=== PATIENT | female | born 1990 | race Caucasian/White ===

== ENCOUNTER 2018-01-20 08:53 | Outpatient (CLI) | payer BC | END 2018-01-20 08:54 | disposition home or self-care (01) | LOC: BICMAMMO 08:53 | PROVIDERS: ATTEND Family Medicine | DX: M85.80 Other specified disorders of bone density and structure, unspecified site (principal); E55.9 Vitamin D deficiency, unspecified | CPT/HCPCS: 77080 ==

== ENCOUNTER 2018-12-31 14:32 | Inpatient (IN) | payer BC ==
[2018-12-31] MEDS: Lactated Ringer's 1,000 ML IV SCH (21:25)
[2018-12-31] MEDS ORDERED: NS w/ Oxytocin 10 units 500 ML IV SCH (21:27)
[2018-12-31] MEDS ORDERED: HYDROcodone/Acetaminophen 5/325 mg Tablet PO PRN ×2 (21:27)
[2018-12-31] MEDS ORDERED: hydrALAZINE 20 MG/ML VIAL SLOW IVP PRN (21:27)
[2018-12-31] MEDS ORDERED: Lidocaine 1% (PF) 30 ML VIAL SC PRN (21:27)
[2018-12-31] MEDS ORDERED: Promethazine HCl 25 MG/ML VIAL IM PRN (21:27)
[2018-12-31] MEDS ORDERED: Ibuprofen 800 MG TAB PO PRN (21:27)
[2018-12-31] MEDS ORDERED: Acetaminophen 500 MG TAB PO PRN (21:27)
[2018-12-31] MEDS ORDERED: NS / Oxytocin 40 units/1000ml 1,000 ML IV PRN (21:27)
[2018-12-31] MEDS ORDERED: Ondansetron PF 4 MG/2 ML Vial IVP PRN (21:27)
[2018-12-31] MEDS ORDERED: Butorphanol Tartrate 1 MG/ML VIAL SLOW IVP PRN (21:27)
[2018-12-31 21:37] LABS: Hemoglobin 11.4 g/dL (12.0-16.0); Mean Corpuscular HGB CONC 32.5 g/dL (32.0-36.0); Mean Corpuscular Hemoglobin 27.9 pg (27.0-31.0); Mean Corpuscular Volume 85.7 fL (78.0-98.0); Mean Platelet Volume 8.7 fL (7.4-10.4); Platelet Count 321 thou/uL (130-400); RBC Distribution Width 13.7 % (11.5-14.5); Red Blood Cell (RBC) Count 4.09 mill/uL (4.20-5.40); White Blood Cell (WBC) Count 12.8 thou/uL (4.8-10.8)
[2018-12-31 21:39] VITALS: BMI 35.5
[2018-12-31] MEDS: Misoprostol 100 MCG TAB VAG SCH (21:45)
[2018-12-31 22:17] LABS: Syphilis Antibody Nonreactive (Nonreactive); Syphilis Antibody Index 0.07 S/CO (<1.00 Non-Reactive)
[2018-12-31 22:27] LABS: HBSAg Index 0.21 S/CO (0-0.99); Hep B Surf Ag Non-Reactive S/CO (NonReactive)
[2019-01-01] MEDS: Misoprostol 100 MCG TAB VAG SCH ×5 (01:10→21:55)
[2019-01-01] MEDS: Lactated Ringer's 1,000 ML IV SCH ×3 (08:12→12:13)
[2019-01-01] MEDS ORDERED: Fentanyl 4 mcg/Bup 0.1% Cadd 100 ML ONE (09:23)
[2019-01-01] MEDS ORDERED: Naloxone HCl 0.4 mg/ml Vial IVP PRN ×2 (09:58)
[2019-01-01] MEDS ORDERED: Promethazine HCl 25 MG/ML VIAL IM PRN (09:58)
[2019-01-01] MEDS ORDERED: diphenhydrAMINE 50 MG/ML VIAL IVP PRN (09:58)
[2019-01-01] MEDS ORDERED: Ondansetron PF 4 MG/2 ML Vial IVP PRN ×2 (09:58→15:32)
[2019-01-01] MEDS ORDERED: Acetaminophen 325 MG TAB PO PRN (09:58)
[2019-01-01] MEDS ORDERED: Lactated Ringer's 500 ML IV PRN (09:58)
[2019-01-01] MEDS ORDERED: ePHEDrine/0.9% NaCl/PF SYRINGE 50 mg/10 ml SLOW IVP PRN (09:58)
[2019-01-01] MEDS ORDERED: Fentanyl 4 mcg/Bupivacaine 0.1% Cassette 100 ML EPIDURAL SCH (10:00)
[2019-01-01] MEDS ORDERED: Communication Order-Pharmacy FS SCH (10:00)
--- NOTE | 2019-01-01 14:42 | PDOC.OPDEL ---
OB Operative/Delivery Note Delivery Dr/Surgeon: Hansel Pre-Delivery Diagnosis: elective induction Procedure/Post Delivery Dx: spontaneous vaginal delivery Weeks gestation: 40 Anesthesia: local - Findings A Sex: male - 1 min: 8 - 5 min: 9 - Additional Findings/Plan Placenta delivered: spontaneous Repaired Obstetrical Laceration: 2nd degree Estimated blood loss: 225ml Post delivery plan: routine recovery
[2019-01-01] MEDS ORDERED: HYDROcodone/Acetaminophen 5/325 mg Tablet PO PRN ×2 (15:32)
[2019-01-01] MEDS ORDERED: Adacel (T-DAP) 0.5 ML SYRINGE IM ONE (15:32)
[2019-01-01] MEDS ORDERED: hydrALAZINE 20 MG/ML VIAL SLOW IVP PRN (15:32)
[2019-01-01] MEDS ORDERED: diphenhydrAMINE 25 MG CAP PO PRN (15:32)
[2019-01-01] MEDS ORDERED: Benzocaine-Menthol 82.5 ML CAN TOP PRN (15:32)
[2019-01-01] MEDS ORDERED: Milk Of Magnesia 30 ML UDCUP PO PRN (15:32)
[2019-01-01] MEDS ORDERED: NS / Oxytocin 40 units/1000ml 1,000 ML IV SCH (15:32)
[2019-01-01] MEDS ORDERED: Bisacodyl 10 MG SUPP PR PRN (15:32)
[2019-01-01] MEDS: Ibuprofen 800 MG TAB PO SCH (21:15)
[2019-01-01] MEDS: Docusate Calcium (SURFAK) 240 MG CAP PO SCH (21:15)
[2019-01-01] MEDS: Ferrous Sulfate 325 MG TAB PO SCH (21:55)
[2019-01-02] MEDS: Ibuprofen 800 MG TAB PO SCH ×3 (05:38→21:16)
--- NOTE | 2019-01-02 08:06 | PDOC.PP ---
Post Progress Note Post Day #: 1 Subjective: doing well, minimal discomfort and lochia, some latching issues PO intake tolerated: yes Flatus: yes Ambulation: yes Vital Signs (12 hours) Temp Pulse Resp BP 01/02/19 04:17 97.6 F 75 18 105/62 01/02/19 00:36 98.2 F 91 18 107/56 L Weight Weight 227 lb - Physical Examination General: NAD Respiratory: non-labored breathing Abdominal: no distention Fundus firm & at: below umb Skin: no rash Neurological: no gross focal deficits Psychiatric: A&Ox3, normal affect Result Diagrams: 12/31/18 21:29 Additional Labs: Post Labs Blood Type O POSITIVE 12/31/18 22:22 Hep Bs Antigen Non-Reactive S/CO (NonReactive) 12/31/18 21:29 (1) 40 weeks gestation of Code(s): Z3A.40 - 40 WEEKS GESTATION OF Status: Acute (2) Vaginal delivery Code(s): O80 - ENCOUNTER FOR FULL-TERM UNCOMPLICATED DELIVERY Status: Acute - Assessment/Plan PPD1 doing well, LC today, likely DC tomorrow.
[2019-01-02] MEDS: Ferrous Sulfate 325 MG TAB PO SCH ×2 (08:41→17:21)
[2019-01-02] MEDS: Docusate Calcium (SURFAK) 240 MG CAP PO SCH ×2 (08:41→21:16)
[2019-01-02] MEDS: Prenatal Vitamin 1 TAB PO SCH (08:41)
[2019-01-03] MEDS: Ibuprofen 800 MG TAB PO SCH (06:26)
[2019-01-03] MEDS: Ferrous Sulfate 325 MG TAB PO SCH (07:30)
--- NOTE | 2019-01-03 08:05 | PDOC.PP ---
Post Progress Note Post Day #: 2 Subjective: pt is doing well, baby in NICU didn't pass O2 saturation study PO intake tolerated: yes Flatus: yes Ambulation: yes Vital Signs (12 hours) Temp Pulse Resp BP Pulse Ox 01/03/19 04:14 98.0 F 86 18 107/59 L 01/02/19 20:29 98.0 F 70 18 110/63 99 Weight Weight 227 lb - Physical Examination General: NAD Respiratory: non-labored breathing Fundus firm & at: below umb Skin: no rash Neurological: no gross focal deficits Psychiatric: normal affect Result Diagrams: 12/31/18 21:29 Additional Labs: Post Labs Blood Type O POSITIVE 12/31/18 22:22 Hep Bs Antigen Non-Reactive S/CO (NonReactive) 12/31/18 21:29 (1) 40 weeks gestation of Code(s): Z3A.40 - 40 WEEKS GESTATION OF Status: Acute (2) Vaginal delivery Code(s): O80 - ENCOUNTER FOR FULL-TERM UNCOMPLICATED DELIVERY Status: Acute - Assessment/Plan PPD2 doing well, no concerns, pumping and giving formula to baby. Plan to DC to bed and breakfast today if baby not DC.
[2019-01-03 08:32] VITALS: BP 101/66; TEMP 98.3
[2019-01-03] MEDS: Docusate Calcium (SURFAK) 240 MG CAP PO SCH (09:55)
[2019-01-03] MEDS: Prenatal Vitamin 1 TAB PO SCH (09:55)
== END 2019-01-03 13:25 | disposition home or self-care (01) | DRG 807 ==
LOC: L&D 19:55 → 3SW 01-01 17:13
PROVIDERS: ADMIT Obstetrics & Gynecology; ATTEND Obstetrics & Gynecology
PROC: 10E0XZZ Delivery of Products of Conception, External Approach (ICD-10-PCS; principal; 2019-01-01)
PROC: 0KQM0ZZ Repair Perineum Muscle, Open Approach (ICD-10-PCS; 2019-01-01)
DX: O48.0 Post-term pregnancy (principal); Z37.0 Single live birth; Z3A.40 40 weeks gestation of pregnancy; O70.1 Second degree perineal laceration during delivery; Z88.2 Allergy status to sulfonamides
CPT/HCPCS: 36415; 51702; 85027; 86780; 86850; 86900; 86901; 87340; 90715; J2001; J2590

== ENCOUNTER 2020-08-22 12:01 | Outpatient (CLI) | payer BC ==
--- NOTE | 2020-08-22 14:25 | RAD ---
TWO VIEW CHEST: 08/22/20 HISTORY: Shortness of breath. Lungs are clear. No infiltrate identified. Heart and mediastinum unremarkable. Osseous structures unr emarkable. IMPRESSION: No acute process. POS: AGW
== END 2020-08-22 12:02 | disposition home or self-care (01) ==
LOC: SCSRAD 12:01
PROVIDERS: ATTEND Family Medicine
DX: R06.02 Shortness of breath (principal)
CPT/HCPCS: 71046

== ENCOUNTER 2020-11-19 13:21 | Outpatient (CLI) | payer BC | END 2020-11-19 13:22 | disposition home or self-care (01) | LOC: BICRAD 13:21 | PROVIDERS: ATTEND Internal Medicine Pulmonary Disease | DX: R06.00 Dyspnea, unspecified (principal) | CPT/HCPCS: 71046 ==

== ENCOUNTER 2021-12-11 10:41 | Outpatient (CLI) | payer BC | END 2021-12-11 10:42 | disposition home or self-care (01) | LOC: SCSRAD 10:41 | PROVIDERS: ATTEND Family Medicine | DX: S62.306A Unspecified fracture of fifth metacarpal bone, right hand, initial encounter for closed fracture (principal) ==

== ENCOUNTER 2022-09-14 14:57 | Outpatient (CLI) | payer BC | END 2022-09-14 14:58 | disposition home or self-care (01) | LOC: SCSMRI 14:57 | PROVIDERS: ATTEND Orthopaedic Surgery | DX: S83.281A Other tear of lateral meniscus, current injury, right knee, initial encounter (principal); M25.461 Effusion, right knee ==

== ENCOUNTER 2022-10-18 14:57 | Outpatient (CLI) | payer BC | END 2022-10-18 14:58 | disposition home or self-care (01) | LOC: SCSRAD 14:57 | PROVIDERS: ATTEND Family Medicine | DX: M54.50 Low back pain, unspecified (principal) | CPT/HCPCS: 72110 ==

== ENCOUNTER 2023-08-18 08:46 | Outpatient (CLI) | payer BC | END 2023-08-18 08:47 | disposition home or self-care (01) | PROVIDERS: ATTEND Family Medicine | DX: U09.9 Post COVID-19 condition, unspecified (principal) ==